=== PATIENT | female | born 1975 | race Hispanic/Latino ===

== ENCOUNTER 2017-05-14 09:51 | Inpatient (IN) | payer MEDICAID, OTHER, SELFPAY ==
[2017-05-14] MEDS ORDERED: LR / Pitocin 40 units/1000 ml 1,000 ML IV PRN (10:56)
[2017-05-14] MEDS ORDERED: Lidocaine 1% (PF) 30 ML VIAL SC PRN (10:56)
[2017-05-14] MEDS ORDERED: Docusate 100 MG CAP PO PRN (10:56)
[2017-05-14] MEDS ORDERED: Ondansetron HCl/PF 4 MG/2 ML Vial IVP PRN (10:56)
[2017-05-14] MEDS ORDERED: Promethazine HCl 25 MG/ML VIAL IM PRN (10:56)
[2017-05-14] MEDS ORDERED: Ibuprofen 800 MG TAB PO SCH (11:00)
[2017-05-14 11:37] LABS: Hematocrit 40.5 % (36.0-47.0); Mean Platelet Volume 8.3 fL (7.4-10.4); Red Blood Cell (RBC) Count 4.83 mill/uL (4.20-5.40); White Blood Cell (WBC) Count 9.1 thou/uL (4.8-10.8)
[2017-05-14 11:47] VITALS: BMI 22.4
[2017-05-14] MEDS ORDERED: LR 500 ML/Oxytocin 10 units 500 ML ONE (11:51)
[2017-05-14] MEDS ORDERED: Bicitra 30 ML UDCUP ONE (11:52)
[2017-05-14] MEDS ORDERED: FLU VACC QS2017-18 36 mo. & older 0.5 ML SYRINGE IM ONE (12:30)
[2017-05-14] MEDS ORDERED: Adacel (T-DAP) 0.5 ML VIAL IM ONE (13:02)
[2017-05-14] MEDS ORDERED: Preparation H Ointment 28 GM TUBE PR PRN (13:02)
[2017-05-14] MEDS ORDERED: HYDROcodone/Acetaminophen 5/325 mg Tablet PO PRN (13:02)
[2017-05-14] MEDS ORDERED: Milk Of Magnesia 30 ML UDCUP PO PRN (13:02)
[2017-05-14] MEDS ORDERED: Bisacodyl 10 MG SUPP PR PRN (13:02)
--- NOTE | 2017-05-14 14:19 | OP-2 ---
DATE OF PROCEDURE: 05/14/2017 LOCATION: [facility] in [place], [place]. PROCEDURE TYPE: Delivery note. DELIVERING PHYSICIAN: Dr. Serafin Bruno ASSISTING/SUPERVISING PHYSICIAN: Dr. Shekhar Potts ATTENDING PHYSICIAN: Dr. Sandra Lawrence PROCEDURE: Spontaneous vaginal delivery. ANESTHESIA: None. ESTIMATED BLOOD LOSS: 150 mL. POSTOPERATIVE DIAGNOSES: 1. Term intrauterine in labor. 2. Advanced maternal age. 3. Anemia of . POSTOPERATIVE DIAGNOSES: 1. Term intrauterine , delivered. 2. Advanced maternal age. 3. Anemia of . INDICATIONS: A 42-year-old female G3, now P3 presented in active labor. DELIVERY NOTE: This is a 42-year-old female G3, now P3 at 38 and 3 weeks who delivered a viable fem romie at 12:32 p.m. on 05/14/2017. Following an uneventful antepartum course, a vigorous femal e infant was delivered over an intact perineum in the occipitoanterior position. Anterior shoulder and remainder of the body were delivered. There was nuchal cord x2. The head was held down and kimberly th was bulb suction and the infant was stimulated. The cord was clamped and cut and cord blood was collected. Placenta delivered intact with a 3-vessel cord noted by Shannon mechanism. Fundal massa ge was performed and the fundus was firm. Cervix and vagina were inspected and found to be free of lacerations. The went to nursery in good condition for routine care. Apgars were 9 and 9 at 1 and 5 minutes, respectively. The patient tolerated delivery well and went to after routine recovery care.
[2017-05-14] MEDS: Lactated Ringer's 1,000 ML IV SCH ×2 (14:50→19:03)
[2017-05-14] MEDS: Ferrous Sulfate 325 MG TAB PO SCH (18:16)
[2017-05-14] MEDS: Acetaminophen 500 MG TAB PO SCH (19:02)
[2017-05-14] MEDS: Docusate (Surfak) 240 MG CAP PO SCH (21:33)
[2017-05-14] MEDS: Ibuprofen 800 MG TAB PO SCH (21:33)
[2017-05-15] MEDS: Acetaminophen 500 MG TAB PO SCH ×4 (00:10→18:26)
[2017-05-15] MEDS: Lactated Ringer's 1,000 ML IV SCH ×2 (04:05→14:24)
[2017-05-15] MEDS: Ibuprofen 800 MG TAB PO SCH ×3 (06:32→21:48)
--- NOTE | 2017-05-15 07:43 | PDOC.PP ---
Post Progress Note Post Day #: 1 PO intake tolerated: yes Flatus: no Ambulation: yes Vital Signs (12 hours) Temp Pulse Resp BP 05/15/17 04:00 98.0 F 65 16 89/50 L 05/15/17 00:10 98.2 F 84 16 94/55 L Weight Weight 59.421 kg - Physical Examination General: NAD Cardiovascular: no m/r/g, RRR Respiratory: clear to ausculation bilateral Abdominal: + bowel sounds, no distention, appropriately TTP Skin: no rash Neurological: no gross focal deficits Psychiatric: normal affect Result Diagrams: 05/14/17 10:55 Additional Labs: Post Labs Blood Type O POSITIVE 05/14/17 10:55 Hep Bs Antigen Non-Reactive S/CO (NonReactive) 05/14/17 10:55 (1) Intrauterine normal Code(s): Z34.90 - ENCNTR FOR SUPRVSN OF NORMAL , UNSP, UNSP TRIMESTER Status: Resolved (2) Advanced maternal age (AMA), 40 years or greater Code(s): [id number] - Status: Acute - Assessment/Plan -->3 -delivered via @ 1232 to [facility] with EBL @ 150mL. Mom reports adequate pain control, able to urinate, denies passing flatus or having bowel movement. -continue colace, recheck this afternoon -ok for discharge pending makeup sales consultant and passing flatus <Yung Bruno - Last Filed: 05/15/17 07:41> Vital Signs (12 hours) Temp Pulse Resp BP 05/15/17 12:30 98.4 F 64 18 05/15/17 12:27 98.4 F 64 18 99/54 L 05/15/17 08:43 98.2 F 81 18 110/75 05/15/17 08:05 98.2 F 81 18 05/15/17 04:00 98.0 F 65 16 89/50 L Weight Weight 59.421 kg Result Diagrams: 05/14/17 10:55 Additional Labs: Post Labs Blood Type O POSITIVE 05/14/17 10:55 Hep Bs Antigen Non-Reactive S/CO (NonReactive) 05/14/17 10:55 <Sandra Lawrence - Last Filed: 10/13/17 12:59> Attending Addendum - Attending Addendum I personally evaluated the patient and discussed the management with Dr. Bruno on 05/15/17. I agree with the History, Examination, Assessment and Plan documented above with any addition or exceptions noted below. Doing well. Discharge home at 24 hours. <Sandra Lawrence - Last Filed: 05/15/17 12:59>
[2017-05-15] MEDS: Docusate (Surfak) 240 MG CAP PO SCH ×2 (09:19→21:48)
[2017-05-15] MEDS: Prenatal Vitamin 1 TAB PO SCH (09:19)
[2017-05-15] MEDS: Ferrous Sulfate 325 MG TAB PO SCH ×2 (09:19→17:20)
[2017-05-15 13:34] LABS: Hematocrit 37.5 % (36.0-47.0)
[2017-05-16] MEDS: Acetaminophen 500 MG TAB PO SCH ×3 (02:01→11:44)
[2017-05-16] MEDS: Lactated Ringer's 1,000 ML IV SCH ×3 (02:01→11:44)
[2017-05-16] MEDS: Ibuprofen 800 MG TAB PO SCH ×2 (06:10→14:09)
[2017-05-16 07:57] VITALS: BP 97/54; TEMP 98.1
[2017-05-16] MEDS: Prenatal Vitamin 1 TAB PO SCH (09:04)
[2017-05-16] MEDS: Docusate (Surfak) 240 MG CAP PO SCH (09:04)
[2017-05-16] MEDS: Ferrous Sulfate 325 MG TAB PO SCH (09:05)
--- NOTE | 2017-05-16 09:33 | PDOC.PP ---
Post Progress Note Post Day #: 2 PO intake tolerated: yes Flatus: yes Ambulation: yes Vital Signs (12 hours) Temp Pulse Resp BP Pulse Ox 05/16/17 07:25 98.1 F 58 L 16 97/54 L 95 05/16/17 00:15 98.3 F 71 95/48 L Weight Weight 59.421 kg - Physical Examination General: NAD Cardiovascular: no m/r/g, RRR Respiratory: clear to ausculation bilateral Abdominal: + bowel sounds, no distention, appropriately TTP Neurological: no gross focal deficits Psychiatric: normal affect Result Diagrams: 05/15/17 13:10 Additional Labs: Post Labs Blood Type O POSITIVE 05/14/17 10:55 Hep Bs Antigen Non-Reactive S/CO (NonReactive) 05/14/17 10:55 (1) Intrauterine normal Code(s): Z34.90 - ENCNTR FOR SUPRVSN OF NORMAL , UNSP, UNSP TRIMESTER Status: Resolved (2) Advanced maternal age (AMA), 40 years or greater Code(s): [id number] - Status: Acute - Assessment/Plan vitals stable pt pain free with appropriate lochia urinating, BM, tolerating po and ambulating stable for DC home today pending babys bili home with colace for constipation <Yung Bruno - Last Filed: 05/16/17 09:30> Vital Signs (12 hours) Temp Pulse Resp BP Pulse Ox 05/16/17 08:10 98.1 F 58 L 16 05/16/17 07:25 98.1 F 58 L 16 97/54 L 95 05/16/17 00:15 98.3 F 71 95/48 L Weight Weight 59.421 kg Result Diagrams: 05/15/17 13:10 Additional Labs: Post Labs Blood Type O POSITIVE 05/14/17 10:55 Hep Bs Antigen Non-Reactive S/CO (NonReactive) 05/14/17 10:55 <Sandra Lawrence - Last Filed: 05/16/17 11:23> Attending Addendum - Attending Addendum I personally evaluated the patient and discussed the management with Dr. Bruno on 05/16/17 I agree with the History, Examination, Assessment and Plan documented above with any addition or exceptions noted below. Discharge home today. <Sandra Lawrence - Last Filed: 05/16/17 11:23>
== END 2017-05-16 14:20 | disposition home or self-care (01) | DRG 775 ==
LOC: L&D/OP 09:51 → L&D 11:28 → 3SW 14:30
PROVIDERS: ADMIT Family Medicine; ATTEND Family Medicine
PROC: 10E0XZZ Delivery of Products of Conception, External Approach (ICD-10-PCS; principal; 2017-05-14)
DX: O69.81X0 Labor and delivery complicated by cord around neck, without compression, not applicable or unspecified (principal); D64.9 Anemia, unspecified; O99.02 Anemia complicating childbirth; Z3A.38 38 weeks gestation of pregnancy; Z37.0 Single live birth
CPT/HCPCS: 36415; 85027; 86780; 86850; 86900; 86901; 87340; 87389; J0595; J7120